=== PATIENT | female | born 1955 | race Caucasian/White ===

== ENCOUNTER 2019-05-19 15:42 | Outpatient (REF) | payer OTHER, SELFPAY ==
--- NOTE | 2019-05-19 14:20 | PAPFT_PTH ---
PATIENT: Bibi Harley LOC: [facility] U#:[id number] AGE/SX: 63/F ROOM: RE05/19/[address]: Crystal Enriquez RN : 1955 BED: DIS: 05/19/2019 SPEC #: [id number] RECD: 05/19/19 18:09 STATUS: QUOC REQ #: [id number] JOSE: 05/19/19 14:[address]: Crystal Enriquez [facility] Cytology RECD BY: Monique Luque ENTERED: 05/19/19 18:09 SP TYPE: PAPFT OTHR DR: Nicolette Nagy Tissues: 1 - CX/ENDOCX FOR PAP SMEARS Procedures: PAP THIN PREP/UVM Screening HPV DNA PROBE Comments: [id number]
== END 2019-05-19 16:02 ==
LOC: LBN 15:42
PROVIDERS: PCP Physician Assistant Medical; Visit Provider Advanced Practice Midwife
DX: Z12.4 Encounter for screening for malignant neoplasm of cervix (principal)
CPT/HCPCS: 88142; 87624

== ENCOUNTER 2019-06-25 10:29 | Outpatient (REF) | payer OTHER, SELFPAY ==
--- NOTE | 2019-06-25 08:45 | ENDO_PTH ---
PATIENT: Bibi Harley LOC: [facility] U#:[id number] AGE/SX: 63/F ROOM: RE06/25/[address]: Judith Camarena : 1955 BED: DIS: 06/25/2019 SPEC #: [id number] RECD: 06/25/19 12:47 STATUS: QUOC REQ #: [id number] JOSE: 06/25/19 08:[address]: Judith Camraena DEPT: Surgical Specimen RECD BY: Monique Luque ENTERED: 06/25/19 12:48 SP TYPE: Endo OTHR DR: Nicolette Nagy Tissues: 1 - ENDOCERVICAL BX/CURRETTE Procedures: GROSS AND MICRO LEVEL 4 Comments: [id number]
== END 2019-06-25 10:49 ==
LOC: LBN 10:29
PROVIDERS: PCP Physician Assistant Medical; Visit Provider Obstetrics & Gynecology Gynecology
DX: N88.8 Other specified noninflammatory disorders of cervix uteri (principal); R87.810 Cervical high risk human papillomavirus (HPV) DNA test positive
CPT/HCPCS: 88305

== ENCOUNTER 2019-07-22 01:19 | Outpatient (CLI) | payer OTHER, SELFPAY ==
--- NOTE | 2019-07-22 17:00 | DI.MAMMO_ITS ---
EXAM: MG MAMMO SCREENING CLINICAL HISTORY: Screening,z12.39 TECHNIQUE: Bilateral full field digital CC and MLO mammographic images were obtained with 3D tomosyn thesis and utilizing computer aided detection (CAD). COMPARISON: Available for comparison. FINDINGS: Masses/Architectural Distortion: None seen. Microcalcifications: No suspicious pleomorphic-type are seen. Skin Thickening/Nipple Retraction: None. IMPRESSION: 1. No significant interval change with no specific features of malignancy noted. 2. Unless there is more urgent need, screening mammography is recommended, as per [place] [employer] guidelines. ACR BI-RAD Category- 1 Negative Breast Density - Category B - Scattered areas of fibroglandular density A negative radiographic report should not delay biopsy if a dominant or clinically suspicious mass is present. Up to ten percent of cancers are not identified on mammography. A negative report may reinforce clinical impression. Adenosis and dense breasts may obscure an underlying neoplasm. False positive reports average 6 to 10%. Patient will receive a letter notifying them of these results.
== END 2019-07-22 01:39 ==
PROVIDERS: PCP Physician Assistant Medical; Visit Provider Obstetrics & Gynecology Gynecology
DX: Z12.31 Encounter for screening mammogram for malignant neoplasm of breast (principal)
CPT/HCPCS: 77063; 77067

== ENCOUNTER 2020-05-20 17:04 | Outpatient (REF) | payer OTHER, SELFPAY ==
--- NOTE | 2020-05-20 16:15 | PAPFT_PTH ---
PATIENT: Bibi Harley LOC: [facility] U#:[id number] AGE/SX: 64/F ROOM: RE05/20/[address]: Crystal Enriquez RN : 1955 BED: DIS: 05/20/2020 SPEC #: [id number] RECD: 05/20/20 17:29 STATUS: QUOC REQ #: [id number] JOSE: 05/20/20 16:[address]: Crystal Enriquez DEPT: [facility] Cytology RECD BY: Monique Luque ENTERED: 05/20/20 17:29 SP TYPE: PAPFT OTHR DR: Nicolette Nagy Tissues: 1 - CX/ENDOCX FOR PAP SMEARS Procedures: PAP THIN PREP/[facility] Screening HPV DNA PROBE Comments: [id number] (HPV 16 / 18/45)
== END 2020-05-20 17:24 ==
LOC: LBN 17:04
PROVIDERS: PCP Physician Assistant Medical; Visit Provider Advanced Practice Midwife
DX: Z12.4 Encounter for screening for malignant neoplasm of cervix (principal); Z11.51 Encounter for screening for human papillomavirus (HPV); R87.810 Cervical high risk human papillomavirus (HPV) DNA test positive
CPT/HCPCS: 88142; 87624

== ENCOUNTER 2021-07-27 09:25 | Outpatient (REF) | payer OTHER, SELFPAY ==
--- NOTE | 2021-07-27 09:00 | PAPFT_PTH ---
PATIENT: Bibi Harley LOC: [facility] U#:[id number] AGE/SX: 65/F ROOM: RE07/27/[address]: Judith Camarena : 1955 BED: DIS: 07/27/2021 SPEC #: [id number] RECD: 07/27/21 12:45 STATUS: QUOC REQ #: [id number] JOSE: 07/27/21 09:[address]: Judith Camarena DEPT: [facility] Cytology RECD BY: Monique Luque ENTERED: 07/27/21 12:45 SP TYPE: PAPFT OTHR DR: Nicolette Nagy Tissues: 1 - CX/ENDOCX FOR PAP SMEARS Procedures: PAP THIN PREP/UVM Screening HPV DNA PROBE Comments: [id number] (HPV 16 & 18/45)
== END 2021-07-27 09:26 | disposition home or self-care (01) ==
LOC: LBN 09:25
PROVIDERS: PCP Physician Assistant Medical; Visit Provider Obstetrics & Gynecology Gynecology
DX: Z12.4 Encounter for screening for malignant neoplasm of cervix (principal); Z11.51 Encounter for screening for human papillomavirus (HPV); R87.810 Cervical high risk human papillomavirus (HPV) DNA test positive
CPT/HCPCS: 88142; 87624

== ENCOUNTER 2021-08-03 00:57 | Outpatient (CLI) | payer OTHER, SELFPAY ==
--- NOTE | 2021-08-03 10:27 | DI.MAMMO_ITS ---
Exam(s) MAMMO SCREENING EXAM: MAMMO SCREENING CLINICAL HISTORY: screening. TECHNIQUE: Bilateral full field digital CC and MLO mammographic images were obtained with 3D tomosyn thesis and utilizing computer aided detection (CAD). COMPARISON: Prior mammograms were reviewed, the most recent being July 2019. FINDINGS: There are 2 small benign-appearing nodules upper outer quadrant of left breast which unchanged appear ance of benign lymph nodes. Area of asymmetric tissue laterally in left breast is unchanged from prior studies. There are no new spiculated masses nor malignant appearing microcalcification groups. There is no significant architectural distortion nor skin thickening-retraction. IMPRESSION: No radiographic evidence of malignancy. BI-RADS Category 2 - Benign Findings Breast Density - Category B - Scattered areas of fibroglandular density Breast density Category C or D implies that the patient has dense breast tissue. Dense breast tissue can make it harder to find cancer on a mammogram. Dense breast tissue is also associated with an incr eased risk of breast cancer. This information about the result of the mammogram report was provided to the patient to raise their awareness. Use this report when you speak with the patient about their risks for breast cancer, which includes their family history. At that time, you may recommend additional screening tests (Ultrasoun d or MRI) as these tests may add significant information. A negative radiographic report should not delay biopsy if a dominant or clinically suspicious mass is present. Up to ten percent of cancers are not identified on mammography. A negative report may reinforce clinical impression. Adenosis and dense breasts may obscure an underlying neoplasm. False positive reports average 6 to 10%. Patient will receive a letter notifying them of these results.
== END 2021-08-03 01:17 ==
PROVIDERS: PCP Physician Assistant Medical; Visit Provider Obstetrics & Gynecology Gynecology
DX: Z12.31 Encounter for screening mammogram for malignant neoplasm of breast (principal)
CPT/HCPCS: 77063; 77067

== ENCOUNTER 2022-08-10 00:58 | Outpatient (CLI) | payer OTHER, SELFPAY ==
--- NOTE | 2022-08-10 06:45 | DI.MAMMO_ITS ---
Exam(s) MAMMO SCREENING EXAM: MAMMO SCREENING CLINICAL HISTORY: screening,z12.39. TECHNIQUE: Bilateral full field digital CC and MLO mammographic images were obtained with 3D tomosyn thesis and utilizing computer aided detection (CAD). COMPARISON: Prior mammograms were reviewed. FINDINGS: There has been no significant change in the appearance and distribution of the fibroglandular tissue. There are no new spiculated masses nor malignant appearing microcalcification groups. Area of asymmetric tissue left breast unchanged from prior studies. There is no significant architectural distortion nor skin thickening-retraction. IMPRESSION: No radiographic evidence of malignancy. BI-RADS Category 1 - Negative Breast Density - Category B - Scattered areas of fibroglandular density Breast density Category C or D implies that the patient has dense breast tissue. Dense breast tissue can make it harder to find cancer on a mammogram. Dense breast tissue is also associated with an incr eased risk of breast cancer. This information about the result of the mammogram report was provided to the patient to raise their awareness. Use this report when you speak with the patient about their risks for breast cancer, which includes their family history. At that time, you may recommend additional screening tests (Ultrasoun d or MRI) as these tests may add significant information. A negative radiographic report should not delay biopsy if a dominant or clinically suspicious mass is present. Up to ten percent of cancers are not identified on mammography. A negative report may reinforce clinical impression. Adenosis and dense breasts may obscure an underlying neoplasm. False positive reports average 6 to 10%. Patient will receive a letter notifying them of these results.
== END 2022-08-10 01:18 ==
LOC: DI 00:58
PROVIDERS: PCP Physician Assistant Medical; Visit Provider Obstetrics & Gynecology Gynecology
DX: Z12.31 Encounter for screening mammogram for malignant neoplasm of breast
CPT/HCPCS: 77063; 77067

== ENCOUNTER 2022-08-10 12:02 | Outpatient (REF) | payer OTHER, SELFPAY ==
--- NOTE | 2022-08-10 10:30 | PAPFT_PTH ---
PATIENT: Bibi Harley LOC: [facility] U#:[id number] AGE/SX: 66/F ROOM: RE08/10/[address]: Judith Camarena : 1955 BED: DIS: 08/10/2022 SPEC #: [id number] RECD: 08/10/22 12:51 STATUS: QUOC REQ #: [id number] JOSE: 08/10/22 10:[address]: Judith Camarena DEPT: [facility] Cytology RECD BY: Monique Luque ENTERED: 08/10/22 12:51 SP TYPE: PAPFT OTHR DR: Nicolette Nagy Tissues: 1 - CX/ENDOCX FOR PAP SMEARS Procedures: PAP THIN PREP/UVM Screening HPV DNA PROBE Comments: [id number]
== END 2022-08-10 12:03 | disposition home or self-care (01) ==
LOC: LBN 12:02
PROVIDERS: PCP Physician Assistant Medical; Visit Provider Obstetrics & Gynecology Gynecology
DX: Z12.4 Encounter for screening for malignant neoplasm of cervix (principal); Z11.51 Encounter for screening for human papillomavirus (HPV); R87.810 Cervical high risk human papillomavirus (HPV) DNA test positive
CPT/HCPCS: 88142; 87624

== ENCOUNTER 2022-11-01 11:02 | Outpatient (REF) | payer OTHER, SELFPAY ==
--- NOTE | 2022-11-01 10:45 | ENDO_PTH ---
PATIENT: Bibi Harley LOC: [facility] #:[id number] AGE/SX: 66/F ROOM: RE11/01/[address]: Judith Camarena : 1955 BED: DIS: 11/01/2022 SPEC #: [id number] RECD: 11/01/22 12:57 STATUS: QUOC RESENDEZ #: [id number] JOSE: 11/01/22 10:[address]: Judith Camarena DEPT: Surgical Specimen RECD BY: Monique Luque ENTERED: 11/01/22 12:57 SP TYPE: Endo OTHR DR: Nicolette Nagy Tissues: 1 - ENDOCERVICAL BX/CURRETTE 2 - CERVICAL BIOPSY Procedures: GROSS AND MICRO LEVEL 4 IMMUNOPEROXIDASE STAIN Comments: [id number]
== END 2022-11-01 11:03 | disposition home or self-care (01) ==
LOC: LBN 11:02
PROVIDERS: PCP Physician Assistant Medical; Visit Provider Obstetrics & Gynecology Gynecology
DX: R87.810 Cervical high risk human papillomavirus (HPV) DNA test positive; Z11.51 Encounter for screening for human papillomavirus (HPV)
CPT/HCPCS: 88305; 88361

== ENCOUNTER → 2023-11-22 00:30 | Outpatient (CLI) | payer MEDICARE, SELFPAY ==
--- NOTE | 2023-11-22 12:00 | DI.MAMMO_ITS ---
Exam(s) MAMMO SCREENING EXAM: MAMMO SCREENING CLINICAL HISTORY: screening. TECHNIQUE: Bilateral full field digital CC and MLO mammographic images were obtained with 3D tomosyn thesis and utilizing computer aided detection (CAD). COMPARISON: Prior mammograms were reviewed. FINDINGS: There has been no significant change in the appearance and distribution of the fibroglandular tissue. There are no CAD designations. There are no new spiculated masses nor malignant appearing microcalcification groups. There is no significant architectural distortion nor skin thickening-retraction. IMPRESSION: No radiographic evidence of malignancy. BI-RADS Category 1 - Negative Breast Density - Category B - Scattered areas of fibroglandular density Breast density Category C or D implies that the patient has dense breast tissue. Dense breast tissue can make it harder to find cancer on a mammogram. Dense breast tissue is also associated with an incr eased risk of breast cancer. This information about the result of the mammogram report was provided to the patient to raise their awareness. Use this report when you speak with the patient about their risks for breast cancer, which includes their family history. At that time, you may recommend additional screening tests (Ultrasoun d or MRI) as these tests may add significant information. A negative radiographic report should not delay biopsy if a dominant or clinically suspicious mass is present. Up to ten percent of cancers are not identified on mammography. A negative report may reinforce clinical impression. Adenosis and dense breasts may obscure an underlying neoplasm. False positive reports average 6 to 10%. Patient will receive a letter notifying them of these results.
== END ==
PROVIDERS: PCP Physician Assistant Medical; Visit Provider Obstetrics & Gynecology
DX: Z12.31 Encounter for screening mammogram for malignant neoplasm of breast (principal); Z12.39 Encounter for other screening for malignant neoplasm of breast
CPT/HCPCS: 77063; 77067

== ENCOUNTER 2023-11-22 13:22 | Outpatient (REF) | payer OTHER, SELFPAY ==
--- NOTE | 2023-11-22 13:20 | PAPFT_PTH ---
PATIENT: Bibi Harley LOC: [facility] U#:[id number] AGE/SX: 67/F ROOM: RE11/22/[address]: Judith Camarena : 1955 BED: DIS: 11/22/2023 SPEC #: [id number] RECD: 11/22/23 17:23 STATUS: QUOC REQ #: [id number] JOSE: 11/22/23 13:[address]: Judith Camarena DEPT: [facility] Cytology RECD BY: Monique Luque ENTERED: 11/22/23 17:23 SP TYPE: PAPFT OTHR DR: Nicolette Nagy Tissues: 1 - CX/ENDOCX FOR PAP SMEARS Procedures: PAP THIN PREP/UVM Screening HPV DNA PROBE Comments: [id number] (HPV 16 & 18/45)
== END 2023-11-22 13:23 | disposition home or self-care (01) ==
LOC: LBN 13:22
PROVIDERS: PCP Physician Assistant Medical; Visit Provider Obstetrics & Gynecology Gynecology
DX: Z12.4 Encounter for screening for malignant neoplasm of cervix (principal)
CPT/HCPCS: 88142; 87624

== ENCOUNTER 2024-11-30 02:16 | Outpatient (CLI) | payer MEDICARE, SELFPAY ==
--- NOTE | 2024-11-30 06:45 | DI.MAMMO_ITS ---
Exam(s) MAMMO SCREENING EXAM: MAMMO SCREENING CLINICAL HISTORY: screening,z12.39 TECHNIQUE: Mammograms were interpreted according to the usual protocol including computer analysis with CAD system, tomosynthesis and C-view imaging. COMPARISON: 2014 through 2023 FINDINGS: The breasts are composed of scattered fibroglandular densities, Breast Density category B. No suspicious masses or suspicious microcalcifications are seen. No skin thickening or abnormal axillary lymph nodes are seen. There has been no significant change from prior exams. IMPRESSION: BI-RADS Category 1, Negative mammogram Yearly screening mammography is recommended. Breast Density - Category B - There are scattered areas of fibroglandular density. Breast density Category C or D implies that the patient has dense breast tissue. Dense breast tissue can make it harder to find cancer on a mammogram. Dense breast tissue is also associated with an increased risk of breast cancer. This information about the result of the mammogram report was provided to the patient to raise their awareness. Use this report when you speak with the patient about their risks for breast cancer, which includes their family history. At that time, you may recommend additional screening tests (Ultrasound or MRI) as these tests may add significant information. A negative radiographic report should not delay biopsy if a dominant or clinically suspicious mass is present. Up to ten percent of cancers are not identified on mammography. A negative report may reinforce clinical impression. Adenosis and dense breasts may obscure an underlying neoplasm. False positive reports average 6 to 10%. Patient will receive a letter notifying them of these results.
== END 2024-11-30 02:36 ==
PROVIDERS: PCP Physician Assistant Medical; Visit Provider Obstetrics & Gynecology Gynecology
DX: Z12.31 Encounter for screening mammogram for malignant neoplasm of breast (principal); R92.323 Mammographic fibroglandular density, bilateral breasts
CPT/HCPCS: 77063; 77067

== ENCOUNTER 2024-11-30 10:58 | Outpatient (REF) | payer MEDICARE, SELFPAY | END 2024-11-30 10:59 | disposition home or self-care (01) | LOC: LBN 10:58 | PROVIDERS: PCP Physician Assistant Medical; Visit Provider Obstetrics & Gynecology | DX: Z12.4 Encounter for screening for malignant neoplasm of cervix (principal) | CPT/HCPCS: 88142; 87624 ==

== ENCOUNTER 2024-12-31 10:20 | Outpatient (REF) | payer MEDICARE, SELFPAY | END 2024-12-31 10:21 | disposition home or self-care (01) | LOC: LBN 10:20 | PROVIDERS: PCP Physician Assistant Medical; Visit Provider Obstetrics & Gynecology | DX: L90.0 Lichen sclerosus et atrophicus (principal) | CPT/HCPCS: 88305 ==